=== PATIENT | female | born 1975 | race Caucasian/White ===

== ENCOUNTER 2017-11-10 17:17 | Emergency (ER) | payer MEDICAID | END 2017-11-10 20:09 | disposition home or self-care (01) | LOC: D.ER 17:17 | DX: M54.12 Radiculopathy, cervical region (principal); F17.200 Nicotine dependence, unspecified, uncomplicated ==

== ENCOUNTER → 2017-11-29 13:32 | Outpatient (CLI) | payer MEDICAID | END | disposition home or self-care (01) | LOC: D.MRI 11-22 13:30 | DX: M54.12 Radiculopathy, cervical region (principal) ==